=== PATIENT | male | born 1950 | race Caucasian/White ===

== ENCOUNTER 2021-04-27 15:25 | Inpatient (IN) | payer MEDICARE, OTHER ==
[~2021-04-27] VITALS: Ht 172.7 cm; Wt 63.0 kg
[2021-04-27 17:04] LABS: ABG BASE EXCESS -11.9 mmol/L; ABG HCO3 13.8 mmol/L; ABG PCO2 30.3 mmHg (35.0-45.0); ABG PH 7.275 (7.350-7.450); ABG PO2 70.2 mmHg (75.0-100.0); ABG SITE RIGHT RADIAL; COHb 0.3 % (0.5-1.5); MetHb 0.2 % (0.0-1.5); O2Hb 90.5 % (94.0-97.0); VENT MODE NC
[2021-04-27 18:10] LABS: HEMATOCRIT 29.6 % (36.7-47.1); MEAN CORPUSCULAR HEMOGLOBIN 30.7 uug (23.8-33.4); MEAN CORPUSCULAR VOLUME 92.2 fL (73.0-96.2); PLATELET COUNT (AUTO) 199 K/uL (152-348)
[2021-04-27 18:17] LABS: CARBON DIOXIDE 17 mmol/L (21-32); CHLORIDE 95 mmol/L (98-107); GLUCOSE 163 mg/dL (74-106)
[2021-04-27 18:27] LABS: CREATININE 16.4 mg/dL (0.6-1.3); POTASSIUM 6.7 mmol/L (3.5-5.1); UREA NITROGEN, BLOOD 114 mg/dL (7-18)
[2021-04-27 18:30] LABS: ALANINE AMINOTRANSFERASE 13 U/L (16-63); ALKALINE PHOSPHATASE 71 U/L (50-136); ASPARTATE AMINOTRANSFERASE 15 U/L (15-37); BILIRUBIN,DIRECT 0.1 mg/dL (0.0-0.2); BILIRUBIN,TOTAL 0.5 mg/dL (0.2-1.0); TOTAL PROTEIN, SERUM 8.7 g/dL (6.4-8.2)
[2021-04-27] MEDS ORDERED: ALBUTEROL SULFATE 2.5 MG/3 ML NEBU NEB ONE (19:15)
[2021-04-27] MEDS ORDERED: SODIUM POLYSTYRENE SULFONATE 15 G/60 ML LIQUID UDC PO ONE (19:15)
[2021-04-27] MEDS ORDERED: SODIUM BICARBONATE 8.4% 50 MEQ/50 ML DISP.SYRIN IV ONE ×2 (19:15→19:27)
[2021-04-27] MEDS ORDERED: DEXTROSE 50% 50 ML DISP.SYRIN IV ONE (19:15)
[2021-04-27] MEDS ORDERED: INSULIN REGULAR, HUMAN 300 UNIT/3 ML VIAL IV ONE (19:15)
[2021-04-27] MEDS ORDERED: SODIUM POLYSTYRENE SULFONATE 15 G/60 ML LIQUID UDC ONE (19:26)
[2021-04-27] MEDS ORDERED: INSULIN REGULAR, HUMAN 300 UNIT/3 ML VIAL ONE (19:27)
[2021-04-27] MEDS ORDERED: DEXTROSE 50% 50 ML DISP.SYRIN ONE (19:27)
[2021-04-27] MEDS ORDERED: ALBUTEROL SULFATE 2.5 MG/3 ML NEBU ONE (20:21)
[2021-04-27] MEDS ORDERED: FUROSEMIDE 40 MG/4 ML VIAL IV ONE (22:45)
[2021-04-27] MEDS ORDERED: ONDANSETRON 4 MG/2 ML VIAL IV PRN (22:45)
[2021-04-27] MEDS ORDERED: Z GUARD REMEDY PASTE 57 GM TUBE TOP PRN (22:45)
[2021-04-28] VITALS (7 sets, daily range): BP systolic 98–185; BP diastolic 53–84
[2021-04-28 00:09] LABS: POTASSIUM 5.7 mmol/L (3.5-5.1)
[2021-04-28] MEDS: PANTOPRAZOLE SODIUM 40 MG TABLET.DR PO SCH (06:30)
[2021-04-28] MEDS: HEPARIN SODIUM,PORCINE 5,000 UNITS/ML VIAL SQ SCH (08:45)
[2021-04-28 08:49] LABS: HEMATOCRIT 27.3 % (36.7-47.1); MEAN CORPUSCULAR HEMOGLOBIN 31.5 uug (23.8-33.4); MEAN CORPUSCULAR VOLUME 93.1 fL (73.0-96.2); PLATELET COUNT (AUTO) 187 K/uL (152-348)
[2021-04-28] MEDS: hydrALAZINE HCL 20 MG/1 ML VIAL IV PRN ×2 (08:50→15:49)
[2021-04-28] MEDS ORDERED: SODIUM POLYSTYRENE SULFONATE 15 G/60 ML LIQUID UDC PO SCH (09:00)
[2021-04-28 09:47] LABS: THYROID STIMULATING HORMONE 1.227 mIU/mL (0.358-3.740)
[2021-04-28 10:36] LABS: CARBON DIOXIDE 13 mmol/L (21-32); CHLORIDE 97 mmol/L (98-107); POTASSIUM 5.9 mmol/L (3.5-5.1)
[2021-04-28 10:37] LABS: GLUCOSE 97 mg/dL (74-106); MAGNESIUM 3.2 mg/dL (1.8-2.4)
[2021-04-28 10:51] LABS: PHOSPHOROUS 11.8 mg/dL (2.5-4.9)
[2021-04-28 10:52] LABS: CREATININE 16.7 mg/dL (0.6-1.3); UREA NITROGEN, BLOOD 118 mg/dL (7-18)
[2021-04-28] MEDS ORDERED: ALTEPLASE 2 MG VIAL XX ONE (12:00)
[2021-04-28] MEDS: SEVELAMER CARBONATE 800 MG TABLET PO SCH ×2 (14:01→17:00)
[2021-04-28] MEDS ORDERED: VANCOMYCIN IV 1,000 MG in IV DEXTROSE 5% 250 ML IV ONE (16:00)
[2021-04-28] MEDS ORDERED: VANCOMYCIN IV 500 MG in IV DEXTROSE 5% 100 ML IV ONE (18:00)
[2021-04-29] VITALS: BP 162/69
[2021-04-29 04:00] VITALS: BP 168/74
[2021-04-29] MEDS: PANTOPRAZOLE SODIUM 40 MG TABLET.DR PO SCH (06:37)
[2021-04-29] MEDS: SEVELAMER CARBONATE 800 MG TABLET PO SCH ×3 (08:06→17:04)
[2021-04-29] MEDS: HEPARIN SODIUM,PORCINE 5,000 UNITS/ML VIAL SQ SCH (08:08)
[2021-04-29 08:37] LABS: HEMATOCRIT 32.6 % (36.7-47.1); MEAN CORPUSCULAR HEMOGLOBIN 31.2 uug (23.8-33.4); MEAN CORPUSCULAR VOLUME 91.8 fL (73.0-96.2); PLATELET COUNT (AUTO) 271 K/uL (152-348)
[2021-04-29 08:48] LABS: CARBON DIOXIDE 20 mmol/L (21-32); CHLORIDE 93 mmol/L (98-107); GLUCOSE 164 mg/dL (74-106); MAGNESIUM 2.7 mg/dL (1.8-2.4); PHOSPHOROUS 7.7 mg/dL (2.5-4.9); POTASSIUM 4.1 mmol/L (3.5-5.1); UREA NITROGEN, BLOOD 62 mg/dL (7-18)
[2021-04-29] MEDS: EPOETIN ALFA-EPBX 10,000 UNIT/ML VIAL SQ ONE ×2 (09:39→09:52)
[2021-04-29 11:35] LABS: EOSINOPHILS % (MANUAL) 1 % (0-8); LYMPHOCYTES % (MANUAL) 13 % (20-40); MONOCYTES % (MANUAL) 10 % (2-10); NEUTROPHILS % (MANUAL) 76 % (42-75)
[2021-04-29] MEDS: hydrALAZINE HCL 20 MG/1 ML VIAL IV PRN (14:04)
[2021-04-29] MEDS: AMLODIPINE 10 MG TABLET PO SCH ×2 (16:27→16:35)
[2021-04-29 16:28] VITALS: BP 136/66
[2021-04-29] MEDS: AZITHROMYCIN 250 MG TABLET PO SCH (16:28)
[2021-04-29 20:57] VITALS: BP 100/46
[2021-04-30 04:44] VITALS: BP 143/55
[2021-04-30] MEDS: PANTOPRAZOLE SODIUM 40 MG TABLET.DR PO SCH (06:48)
[2021-04-30] MEDS: SEVELAMER CARBONATE 800 MG TABLET PO SCH ×3 (09:48→18:46)
[2021-04-30] MEDS: AMLODIPINE 10 MG TABLET PO SCH (09:49)
[2021-04-30] MEDS: HEPARIN SODIUM,PORCINE 5,000 UNITS/ML VIAL SQ SCH (09:55)
[2021-04-30 10:28] LABS: HEMATOCRIT 28.6 % (36.7-47.1); MEAN CORPUSCULAR HEMOGLOBIN 30.9 uug (23.8-33.4); MEAN CORPUSCULAR VOLUME 91.6 fL (73.0-96.2); PLATELET COUNT (AUTO) 240 K/uL (152-348)
[2021-04-30 10:52] LABS: IRON, SERUM 105 ug/dL (50-175)
[2021-04-30 11:20] LABS: CARBON DIOXIDE 24 mmol/L (21-32); CHLORIDE 93 mmol/L (98-107); FERRITIN 640 ng/mL (26-388); GLUCOSE 150 mg/dL (74-106); MAGNESIUM 2.3 mg/dL (1.8-2.4); PHOSPHOROUS 5.9 mg/dL (2.5-4.9); POTASSIUM 3.8 mmol/L (3.5-5.1); UREA NITROGEN, BLOOD 42 mg/dL (7-18)
[2021-04-30 11:23] LABS: CREATININE 7.9 mg/dL (0.6-1.3)
[2021-04-30 11:38] LABS: VANCOMYCIN,RANDOM 21.7 ug/mL (18.0-26.0)
[2021-04-30] MEDS: AZITHROMYCIN 250 MG TABLET PO SCH (12:11)
[2021-04-30 16:18] LABS: EOSINOPHILS % (MANUAL) 2 % (0-8); LYMPHOCYTES % (MANUAL) 12 % (20-40); MONOCYTES % (MANUAL) 20 % (2-10); NEUTROPHILS % (MANUAL) 66 % (42-75)
[2021-04-30 20:00] VITALS: BP 167/70
[2021-04-30] MEDS: hydrALAZINE HCL 20 MG/1 ML VIAL IV PRN (22:30)
[2021-04-30 23:45] VITALS: BP 146/72
[2021-05-01 04:00] VITALS: BP 139/64
[2021-05-01] MEDS ORDERED: VANCOMYCIN IV 500 MG in IV DEXTROSE 5% 100 ML IV PRN (06:00)
[2021-05-01] MEDS: PANTOPRAZOLE SODIUM 40 MG TABLET.DR PO SCH (06:17)
[2021-05-01 06:45] LABS: HEMATOCRIT 26.8 % (36.7-47.1); MEAN CORPUSCULAR VOLUME 91.3 fL (73.0-96.2); PLATELET COUNT (AUTO) 226 K/uL (152-348)
[2021-05-01 07:06] LABS: CARBON DIOXIDE 21 mmol/L (21-32); CHLORIDE 96 mmol/L (98-107); GLUCOSE 95 mg/dL (74-106); MAGNESIUM 2.4 mg/dL (1.8-2.4); PHOSPHOROUS 7.1 mg/dL (2.5-4.9); POTASSIUM 4.6 mmol/L (3.5-5.1); UREA NITROGEN, BLOOD 55 mg/dL (7-18)
[2021-05-01 07:40] LABS: CREATININE 8.9 mg/dL (0.6-1.3)
[2021-05-01] MEDS: SEVELAMER CARBONATE 800 MG TABLET PO SCH ×3 (08:27→17:09)
[2021-05-01] MEDS: AMLODIPINE 10 MG TABLET PO SCH (08:28)
[2021-05-01] MEDS: HEPARIN SODIUM,PORCINE 5,000 UNITS/ML VIAL SQ SCH (08:29)
[2021-05-01] MEDS ORDERED: CHOL200013 PO (10:43)
[2021-05-01] MEDS ORDERED: CALC-343 PO (10:43)
[2021-05-01] MEDS ORDERED: NISO30TA PO (10:43)
[2021-05-01] MEDS ORDERED: LOSA25TA27 PO (10:43)
[2021-05-01] MEDS: AZITHROMYCIN 250 MG TABLET PO SCH (11:53)
[2021-05-01 12:00] VITALS: BP 133/73
[2021-05-01] MEDS: CALCIUM CARBONATE 500 MG TABLET PO SCH ×2 (13:05→17:09)
[2021-05-01 15:06] LABS: NEUTROPHILS % (MANUAL) 0 % (42-75)
[2021-05-01 16:00] VITALS: BP 131/51
[2021-05-01] MEDS ORDERED: NISOLDIPINE PO SCH (17:00)
[2021-05-01 20:00] VITALS: BP 147/73
[2021-05-01] MEDS: LOSARTAN POTASSIUM 25 MG TABLET PO SCH (23:24)
[2021-05-01 23:27] VITALS: BP 178/81
[2021-05-02 04:00] VITALS: BP 169/73
[2021-05-02] MEDS: ACETAMINOPHEN 325 MG TABLET PO PRN (06:13)
[2021-05-02] MEDS: hydrALAZINE HCL 20 MG/1 ML VIAL IV PRN (06:14)
[2021-05-02] MEDS: PANTOPRAZOLE SODIUM 40 MG TABLET.DR PO SCH (06:14)
[2021-05-02 07:53] LABS: MEAN CORPUSCULAR HEMOGLOBIN 31.2 uug (23.8-33.4); PLATELET COUNT (AUTO) 211 K/uL (152-348)
[2021-05-02 08:04] LABS: CARBON DIOXIDE 28 mmol/L (21-32); CHLORIDE 98 mmol/L (98-107); CREATININE 6.8 mg/dL (0.6-1.3); GLUCOSE 182 mg/dL (74-106); MAGNESIUM 2.2 mg/dL (1.8-2.4); PHOSPHOROUS 4.6 mg/dL (2.5-4.9); POTASSIUM 3.9 mmol/L (3.5-5.1); UREA NITROGEN, BLOOD 35 mg/dL (7-18)
[2021-05-02 08:07] LABS: NEUTROPHILS % (MANUAL) 0 % (42-75)
[2021-05-02] MEDS: SEVELAMER CARBONATE 800 MG TABLET PO SCH ×3 (08:36→17:18)
[2021-05-02] MEDS: CHOLECALCIFEROL 1,000 UNIT TABLET PO SCH (08:36)
[2021-05-02] MEDS: CALCIUM CARBONATE 500 MG TABLET PO SCH ×3 (08:37→17:18)
[2021-05-02] MEDS: AMLODIPINE 10 MG TABLET PO SCH (08:37)
[2021-05-02] MEDS: LOSARTAN POTASSIUM 25 MG TABLET PO SCH ×2 (08:37→21:13)
[2021-05-02] MEDS: HEPARIN SODIUM,PORCINE 5,000 UNITS/ML VIAL SQ SCH (08:38)
[2021-05-02 12:00] VITALS: BP 151/63
[2021-05-02] MEDS: AZITHROMYCIN 250 MG TABLET PO SCH (12:12)
[2021-05-02 16:00] VITALS: BP 154/73
[2021-05-02 20:00] VITALS: BP 160/76
[2021-05-03 04:00] VITALS: BP 163/64
[2021-05-03] MEDS: ACETAMINOPHEN 325 MG TABLET PO PRN (05:30)
[2021-05-03] MEDS: PANTOPRAZOLE SODIUM 40 MG TABLET.DR PO SCH (06:35)
[2021-05-03] MEDS: hydrALAZINE HCL 20 MG/1 ML VIAL IV PRN (06:44)
[2021-05-03] MEDS: SEVELAMER CARBONATE 800 MG TABLET PO SCH ×3 (08:55→17:09)
[2021-05-03] MEDS: HEPARIN SODIUM,PORCINE 5,000 UNITS/ML VIAL SQ SCH (08:55)
[2021-05-03] MEDS: CHOLECALCIFEROL 1,000 UNIT TABLET PO SCH (08:56)
[2021-05-03] MEDS: CALCIUM CARBONATE 500 MG TABLET PO SCH ×3 (08:56→17:09)
[2021-05-03] MEDS: AMLODIPINE 10 MG TABLET PO SCH (09:07)
[2021-05-03] MEDS: LOSARTAN POTASSIUM 25 MG TABLET PO SCH ×2 (09:12→21:51)
[2021-05-03] MEDS: AZITHROMYCIN 250 MG TABLET PO SCH (11:38)
[2021-05-03 12:00] VITALS: BP 111/80
[2021-05-03] MEDS ORDERED: VANCOMYCIN IV 500 MG in IV DEXTROSE 5% 100 ML IV ONE (12:00)
[2021-05-03 16:00] VITALS: BP 138/61
[2021-05-03 20:00] VITALS: BP 132/68
[2021-05-04 04:52] VITALS: BP 109/71
[2021-05-04] MEDS: PANTOPRAZOLE SODIUM 40 MG TABLET.DR PO SCH (06:17)
[2021-05-04 08:06] LABS: HEPATITIS B SURFACE AG Negative (Negative)
[2021-05-04 08:43] LABS: HEMATOCRIT 24.8 % (36.7-47.1); MEAN CORPUSCULAR HEMOGLOBIN 30.5 uug (23.8-33.4); MEAN CORPUSCULAR VOLUME 90.8 fL (73.0-96.2); PLATELET COUNT (AUTO) 257 K/uL (152-348)
[2021-05-04] MEDS: HEPARIN SODIUM,PORCINE 5,000 UNITS/ML VIAL SQ SCH (08:49)
[2021-05-04] MEDS: SEVELAMER CARBONATE 800 MG TABLET PO SCH ×3 (08:50→18:04)
[2021-05-04] MEDS: CALCIUM CARBONATE 500 MG TABLET PO SCH ×3 (08:51→18:04)
[2021-05-04] MEDS: CHOLECALCIFEROL 1,000 UNIT TABLET PO SCH (08:51)
[2021-05-04] MEDS: AMLODIPINE 10 MG TABLET PO SCH (09:03)
[2021-05-04] MEDS: LOSARTAN POTASSIUM 50 MG TABLET PO SCH ×2 (09:10→21:06)
[2021-05-04 09:18] LABS: CARBON DIOXIDE 25 mmol/L (21-32); CHLORIDE 96 mmol/L (98-107); GLUCOSE 151 mg/dL (74-106); MAGNESIUM 2.1 mg/dL (1.8-2.4); PHOSPHOROUS 3.5 mg/dL (2.5-4.9); POTASSIUM 4.7 mmol/L (3.5-5.1); UREA NITROGEN, BLOOD 39 mg/dL (7-18)
[2021-05-04 09:23] LABS: NEUTROPHILS % (MANUAL) 0 % (42-75)
[2021-05-04 11:58] VITALS: BP 110/53
[2021-05-04 15:57] VITALS: BP 141/67
[2021-05-04 20:55] VITALS: BP 136/60
[2021-05-05 04:44] VITALS: BP 159/72
[2021-05-05] MEDS: PANTOPRAZOLE SODIUM 40 MG TABLET.DR PO SCH (07:00)
[2021-05-05 07:29] LABS: HEMATOCRIT 22.9 % (36.7-47.1); MEAN CORPUSCULAR VOLUME 90.6 fL (73.0-96.2); PLATELET COUNT (AUTO) 274 K/uL (152-348)
[2021-05-05 08:02] LABS: CARBON DIOXIDE 24 mmol/L (21-32); CHLORIDE 96 mmol/L (98-107); GLUCOSE 104 mg/dL (74-106); MAGNESIUM 2.3 mg/dL (1.8-2.4); PHOSPHOROUS 3.8 mg/dL (2.5-4.9); POTASSIUM 4.9 mmol/L (3.5-5.1); UREA NITROGEN, BLOOD 55 mg/dL (7-18)
[2021-05-05 08:39] VITALS: BP 155/69
[2021-05-05 09:19] LABS: CREATININE 8.4 mg/dL (0.6-1.3)
[2021-05-05] MEDS: SEVELAMER CARBONATE 800 MG TABLET PO SCH ×3 (10:35→17:33)
[2021-05-05] MEDS: CHOLECALCIFEROL 1,000 UNIT TABLET PO SCH (10:35)
[2021-05-05] MEDS: AMLODIPINE 10 MG TABLET PO SCH (10:36)
[2021-05-05] MEDS: CALCIUM CARBONATE 500 MG TABLET PO SCH ×3 (10:36→17:33)
[2021-05-05] MEDS: LOSARTAN POTASSIUM 50 MG TABLET PO SCH ×2 (10:36→20:32)
[2021-05-05] MEDS: HEPARIN SODIUM,PORCINE 5,000 UNITS/ML VIAL SQ SCH (10:37)
[2021-05-05 18:01] VITALS: BP 184/87
[2021-05-05 21:43] VITALS: BP 162/76
[2021-05-06 04:15] VITALS: BP 166/58
[2021-05-06 05:43] VITALS: BP 159/60
[2021-05-06] MEDS: PANTOPRAZOLE SODIUM 40 MG TABLET.DR PO SCH (06:11)
[2021-05-06] MEDS: CHOLECALCIFEROL 1,000 UNIT TABLET PO SCH (09:30)
[2021-05-06] MEDS: CALCIUM CARBONATE 500 MG TABLET PO SCH ×3 (09:30→17:23)
[2021-05-06] MEDS: SEVELAMER CARBONATE 800 MG TABLET PO SCH ×3 (09:31→17:23)
[2021-05-06] MEDS: AMLODIPINE 10 MG TABLET PO SCH (09:31)
[2021-05-06] MEDS: LOSARTAN POTASSIUM 50 MG TABLET PO SCH ×2 (09:32→20:26)
[2021-05-06] MEDS: HEPARIN SODIUM,PORCINE 5,000 UNITS/ML VIAL SQ SCH (09:35)
[2021-05-06 11:58] VITALS: BP 160/78
[2021-05-06 13:07] LABS: HEMATOCRIT 24.6 % (36.7-47.1); MEAN CORPUSCULAR HEMOGLOBIN 30.9 uug (23.8-33.4); MEAN CORPUSCULAR VOLUME 90.7 fL (73.0-96.2); PLATELET COUNT (AUTO) 257 K/uL (152-348)
[2021-05-06 13:14] LABS: ALANINE AMINOTRANSFERASE 14 U/L (16-63); ALKALINE PHOSPHATASE 51 U/L (50-136); ASPARTATE AMINOTRANSFERASE 17 U/L (15-37); BILIRUBIN,DIRECT 0.1 mg/dL (0.0-0.2); BILIRUBIN,TOTAL 0.3 mg/dL (0.2-1.0); CARBON DIOXIDE 27 mmol/L (21-32); CHLORIDE 94 mmol/L (98-107); GLUCOSE 180 mg/dL (74-106); POTASSIUM 5.1 mmol/L (3.5-5.1); TOTAL PROTEIN, SERUM 7.5 g/dL (6.4-8.2); UREA NITROGEN, BLOOD 43 mg/dL (7-18)
[2021-05-06 13:30] LABS: CREATININE 7.5 mg/dL (0.6-1.3)
[2021-05-06 16:49] VITALS: BP 158/70
[2021-05-06 19:32] LABS: EOSINOPHILS % (MANUAL) 1 % (0-8); LYMPHOCYTES % (MANUAL) 15 % (20-40); MONOCYTES % (MANUAL) 28 % (2-10); NEUTROPHILS % (MANUAL) 56 % (42-75)
[2021-05-06 20:52] VITALS: BP 138/60
[2021-05-07 04:45] VITALS: BP 131/62
[2021-05-07] MEDS: PANTOPRAZOLE SODIUM 40 MG TABLET.DR PO SCH (05:36)
[2021-05-07 07:06] LABS: HEMATOCRIT 24.5 % (36.7-47.1); MEAN CORPUSCULAR HEMOGLOBIN 31.2 uug (23.8-33.4); MEAN CORPUSCULAR VOLUME 89.8 fL (73.0-96.2); PLATELET COUNT (AUTO) 266 K/uL (152-348)
[2021-05-07 07:54] LABS: ALANINE AMINOTRANSFERASE 15 U/L (16-63); ALKALINE PHOSPHATASE 49 U/L (50-136); ASPARTATE AMINOTRANSFERASE 17 U/L (15-37); BILIRUBIN,DIRECT 0.1 mg/dL (0.0-0.2); BILIRUBIN,TOTAL 0.3 mg/dL (0.2-1.0); CARBON DIOXIDE 23 mmol/L (21-32); CHLORIDE 95 mmol/L (98-107); GLUCOSE 95 mg/dL (74-106); MAGNESIUM 2.3 mg/dL (1.8-2.4); PHOSPHOROUS 5.4 mg/dL (2.5-4.9); POTASSIUM 4.9 mmol/L (3.5-5.1); TOTAL PROTEIN, SERUM 7.3 g/dL (6.4-8.2); UREA NITROGEN, BLOOD 54 mg/dL (7-18)
[2021-05-07 08:07] LABS: CREATININE 8.9 mg/dL (0.6-1.3)
[2021-05-07] MEDS: SEVELAMER CARBONATE 800 MG TABLET PO SCH ×3 (08:36→17:15)
[2021-05-07] MEDS: CHOLECALCIFEROL 1,000 UNIT TABLET PO SCH (09:14)
[2021-05-07] MEDS: HEPARIN SODIUM,PORCINE 5,000 UNITS/ML VIAL SQ SCH (09:15)
[2021-05-07] MEDS: CALCIUM CARBONATE 500 MG TABLET PO SCH ×3 (09:15→17:14)
[2021-05-07] MEDS: AMLODIPINE 10 MG TABLET PO SCH (09:17)
[2021-05-07] MEDS: LOSARTAN POTASSIUM 50 MG TABLET PO SCH ×2 (09:17→21:35)
[2021-05-07 12:00] VITALS: BP_SYST 113; BP_DIAS 19; BP_DIAS 59
[2021-05-07 16:00] VITALS: BP 123/57
[2021-05-07 21:03] VITALS: BP 134/56
[2021-05-07 21:43] LABS: EOSINOPHILS % (MANUAL) 1 % (0-8); LYMPHOCYTES % (MANUAL) 29 % (20-40); MONOCYTES % (MANUAL) 19 % (2-10); NEUTROPHILS % (MANUAL) 51 % (42-75)
[2021-05-08 04:56] VITALS: BP 132/54
[2021-05-08 06:27] LABS: HEMATOCRIT 21.8 % (36.7-47.1); MEAN CORPUSCULAR HEMOGLOBIN 31.3 uug (23.8-33.4); PLATELET COUNT (AUTO) 264 K/uL (152-348)
[2021-05-08 06:30] LABS: CARBON DIOXIDE 25 mmol/L (21-32); CHLORIDE 95 mmol/L (98-107); CREATININE 7.4 mg/dL (0.6-1.3); GLUCOSE 90 mg/dL (74-106); MAGNESIUM 2.2 mg/dL (1.8-2.4); PHOSPHOROUS 3.8 mg/dL (2.5-4.9); POTASSIUM 4.8 mmol/L (3.5-5.1); UREA NITROGEN, BLOOD 53 mg/dL (7-18)
[2021-05-08] MEDS: PANTOPRAZOLE SODIUM 40 MG TABLET.DR PO SCH (06:33)
[2021-05-08 08:43] VITALS: BP 123/54
[2021-05-08] MEDS: SEVELAMER CARBONATE 800 MG TABLET PO SCH ×3 (08:46→18:22)
[2021-05-08] MEDS: LOSARTAN POTASSIUM 50 MG TABLET PO SCH (08:46)
[2021-05-08] MEDS: AMLODIPINE 10 MG TABLET PO SCH (08:48)
[2021-05-08] MEDS: CHOLECALCIFEROL 1,000 UNIT TABLET PO SCH (08:48)
[2021-05-08] MEDS: CALCIUM CARBONATE 500 MG TABLET PO SCH ×3 (08:48→16:23)
[2021-05-08] MEDS: HEPARIN SODIUM,PORCINE 5,000 UNITS/ML VIAL SQ SCH (08:49)
[2021-05-08 12:34] VITALS: BP 154/65
[2021-05-08] MEDS ORDERED: SEVE800T7 PO (13:53)
[2021-05-08] MEDS ORDERED: LOSA50TA3 PO (13:53)
[2021-05-08] MEDS ORDERED: AMLO10TA59 PO (13:53)
[2021-05-08 14:24] LABS: EOSINOPHILS % (MANUAL) 3 % (0-8); LYMPHOCYTES % (MANUAL) 21 % (20-40); MONOCYTES % (MANUAL) 20 % (2-10); NEUTROPHILS % (MANUAL) 56 % (42-75)
== END 2021-05-08 18:00 | DRG 291 ==
LOC: ER 15:25 → TELE3 23:16 → MEDSURG3 04-29 12:20
PROVIDERS: ADMIT Registered Nurse; ATTEND Nurse Practitioner Family
PROC: 5A1D70Z Performance of Urinary Filtration, Intermittent, Less than 6 Hours Per Day (ICD-10-PCS; principal; 2021-04-28)
PROC: 5A1D70Z Performance of Urinary Filtration, Intermittent, Less than 6 Hours Per Day (ICD-10-PCS; 2021-04-29)
PROC: 5A1D70Z Performance of Urinary Filtration, Intermittent, Less than 6 Hours Per Day (ICD-10-PCS; 2021-05-01)
PROC: 5A1D70Z Performance of Urinary Filtration, Intermittent, Less than 6 Hours Per Day (ICD-10-PCS; 2021-05-03)
PROC: 5A1D70Z Performance of Urinary Filtration, Intermittent, Less than 6 Hours Per Day (ICD-10-PCS; 2021-05-05)
PROC: 5A1D70Z Performance of Urinary Filtration, Intermittent, Less than 6 Hours Per Day (ICD-10-PCS; 2021-05-08)
DX: I13.2 Hypertensive heart and chronic kidney disease with heart failure and with stage 5 chronic kidney disease, or end stage renal disease (principal); N18.6 End stage renal disease; I50.33 Acute on chronic diastolic (congestive) heart failure; J96.01 Acute respiratory failure with hypoxia; G92.8 Other toxic encephalopathy; J18.9 Pneumonia, unspecified organism; E87.1 Hypo-osmolality and hyponatremia; F05 Delirium due to known physiological condition; E11.22 Type 2 diabetes mellitus with diabetic chronic kidney disease; Z99.2 Dependence on renal dialysis; Z91.15 Patient's noncompliance with renal dialysis; D63.1 Anemia in chronic kidney disease; E87.5 Hyperkalemia; M89.8X9 Other specified disorders of bone, unspecified site; Z20.822 Contact with and (suspected) exposure to COVID-19; R90.82 White matter disease, unspecified; Z82.49 Family history of ischemic heart disease and other diseases of the circulatory system; Z83.3 Family history of diabetes mellitus; R53.81 Other malaise
CPT/HCPCS: 36415; 36600; 70030-TC; 70450; 71045; 76705; 83550; 83605; 83615; 83735; 84100; 84132; 84443; 85025; 85730; 86140; 86706; 87040; 87340; 93005; 93307; 97161; A4663; G0378; J0360; J0885; J1644; J1815; J1940; J2997; J3370; J3490; J7030; J7050; J7060; Q0144; U0003